=== PATIENT | male | born 1950 | race Caucasian/White ===

== ENCOUNTER 2022-02-04 15:37 | Emergency (ER) | payer OTHER ==
[2022-02-04 16:24] LABS: BLOOD UREA NITROGEN,BUN 14 mg/dL (7.0-18.0); CARBON DIOXIDE,CO2 28.8 mmol/L (21.0-32.0); CHLORIDE,CL 102 mmol/L (98-107); GLUCOSE RANDOM 177 mg/dL (74-106); POTASSIUM,K 3.3 mmol/L (3.5-5.1); SODIUM,NA 141 mmol/L (136-148)
[2022-02-04 16:26] LABS: ESTIMATED GFR 59 mL/min (>60)
== END 2022-02-04 19:16 | disposition home or self-care (01) ==
LOC: MW.ED 15:37
DX: R29.810 Facial weakness (principal); Z20.822 Contact with and (suspected) exposure to COVID-19; W19.XXXA Unspecified fall, initial encounter
CPT/HCPCS: 36415; 70450; 70450-26; 71045; 71045-26; 80053; 83735; 84484; 85025; 85610; 85730; 99284-25; U0002

== ENCOUNTER 2025-02-19 18:37 | Emergency (ER) | payer OTHER ==
[2025-02-19] MEDS: Diphtheria,Pertussis(Acell),Tetanus Vaccine 0.5 ML Syringe IM ONE (19:45)
== END 2025-02-19 21:11 | disposition home or self-care (01) ==
LOC: MW.ED 18:37
DX: S01.01XA Laceration without foreign body of scalp, initial encounter (principal); E11.9 Type 2 diabetes mellitus without complications; Z91.018 Allergy to other foods; Z79.899 Other long term (current) drug therapy; Z23 Encounter for immunization; W18.39XA Other fall on same level, initial encounter; Y93.89 Activity, other specified
CPT/HCPCS: 12002; 70450; 72125; 90471; 90715; 99283; J2003